=== PATIENT | female | born 1965 | race Caucasian/White ===

== ENCOUNTER 2021-02-04 16:01 | Emergency (ER) | payer MEDICAID, SELFPAY ==
[2021-02-04 16:03] VITALS: BP 149/99; PULSE 102; RESP 18; TEMP 36.6; O2SAT 96; BMI 39.4
--- NOTE | 2021-02-04 16:29 | CT_ITS ---
STUDY: CT ABDOMEN AND PELVIS WITH CONTRAST REASON FOR EXAM: Female, 55 years old. pain -- IV PO Contrast RADIATION DOSAGE (If Supplied By Facility): CTDIvol = ( 18.72 ) mGy, DLP = ( 1414.86 ) mGycm TECHNIQUE: Transaxial images were obtained from the dome of the diaphragm to the symphysis pubis without oral contrast. Oral and amp; IV Gastrografin and amp; 100mL Isovue-370 was administered. Sagittal and coronal images were reconstructed. Individualized dose optimization techniques were used for this CT. COMPARISON: 09/25/2011 FINDINGS: Diffuse interstitial thickening in the lower lobes.. The visualized portions of the heart are within normal limits. Liver is prominent and fatty infiltrated without mass or bile duct dilatation Normal gallbladder and extrahepatic biliary system. Normal spleen. Normal pancreas. Normal bilateral adrenal glands. Normal right kidney. Normal left kidney. Normal visualized stomach. Mildly distended proximal loops of small bowel consistent with focal ileus. No evidence for small bowel obstruction Normal colon. The appendix is visualized and appears normal. Mild atherosclerotic changes of the aorta without evidence for aneurysm.. Normal inferior vena cava. Normal retroperitoneum. Normal urinary bladder. Normal abdominal wall. Lumbar spine demonstrates mild spondylosis. CT/Abdomen/Pelvis WITH Contrast IMPRESSION: Mild hepatomegaly and fatty infiltrated liver. Mild nonspecific ileus within the upper abdomen. No evidence for small bowel obstruction Electronically Signed: Miguel Thomas MD at 19:18 EDT , Service support ,
--- NOTE | 2021-02-04 16:30 | ED.VIS.GEN ---
History of Present Illness Chief Complaint: Back Detail of Chief Complaint: Back and abdominal pain Informant: Patient Onset: Month(s) - 1-1/2 to 2 months Context: Gradual Onset Timing: Waxes and wanes Current Severity: Moderate Maximum Severity: Moderate Narrative: Patient presents with back pain that wraps around into her abdomen. Patient states pain initially started in the lower thoracic midline region. It progressed around to the lower abdomen. She was seen by her PCP who wanted her to come for some blood work but she has not yet done that. Patient states she was seen at [facility] where she had a noncontrast CT and lab work. She states she was told they could not find anything. Patient states is been taking ibuprofen for pain. She denies fever or chills. No vomiting or diarrhea. She states if anything she is slightly constipated. She states she did have a colonoscopy approximately year and a half ago that was normal. - Past Medical History (1) Diabetes Status: Chronic (2) Diabetic neuropathy Status: Chronic (3) GERD (gastroesophageal reflux disease) Status: Chronic Past Medical History - Allergies and Home Meds Allergies/Adverse Reactions: Allergies No Known Allergies Allergy (Verified 02/04/21 16:05) Primary Care Physician: Larry Romo DO [Primary Care Provider] - Surgical History: no surgical history Lives: Spouse/ Significant Other Smoking Status: Current every day smoker Review of Systems General: Denies: Chills, Fever Eyes: Denies: Visual changes - bilaterally ENT: Denies: Bilateral ear pain Cardiovascular: Denies: Chest pain Respiratory: Denies: Dyspnea, Cough Gastrointestinal: Reports: Abdominal pain. Denies: Nausea, Vomiting, Diarrhea Genitourinary: Denies: Dysuria Musculoskeletal: Reports: Back pain. Denies: Swelling, Extremity Pain Skin: Denies: Rash Neurological: Denies: Headache Hematologic: Denies: Easy bruising, Easy bleeding Allergy: Denies: Uticaria Physical Exam Vital Signs/Narrative: Vital Signs Temp Pulse Resp BP Pulse Ox 02/04/21 16:03 97.8 F 102 H 18 149/99 H 96 Inital Vital Signs reviewed: Yes General: Well nourished, Well developed Head: Normocephalic Neck: Supple Cardiovascular: Regular rate, Regular rhythm Respiratory: No distress, CTA bilaterally Abdomen: Soft, Tender - Mild lower abdominal tenderness to palpation., Hypoactive bowel sounds. Negative for: Guarding, Rebound tenderness Back: - - Mild tenderness location in the lower thoracic/upper lumbar midline region. No overlying skin changes. No focal point tenderness. Skin: Normal color Neurological: Alert, Oriented x3, Normal Strength, Normal Sensation Psychological: Normal affect Diagnostic/Tx/Re-eval Impressions Abdomen/Pelvis CT 02/04/21 16:29 IMPRESSION: Mild hepatomegaly and fatty infiltrated liver. Mild nonspecific ileus within the upper abdomen. No evidence for small bowel obstruction Electronically Signed: Miguel Thomas MD at 19:18 EDT , Service support , 02/04/21 16:29 Abdomen/Pelvis WITH Contrast [CT] Stat Laboratory Results 02/04/21 02/04/21 02/04/21 17:00 17:00 17:00 WBC 12.1 H RBC 5.91 H Hgb 16.1 H Hct 49.0 H MCV 82.9 MCH 27.2 MCHC 32.9 RDW Std Deviation 45.8 H RDW Coeff of Azra 15.3 H Plt Count 274 MPV 11.5 Immature Gran % (Auto) 0.500 Neut % (Auto) 64.6 Lymph % (Auto) 26.0 [place] % (Auto) 5.7 Eos % (Auto) 2.3 Baso % (Auto) 0.9 Absolute Neuts (auto) 7.8 H Absolute Lymphs (auto) 3.13 Nucleated RBC % 0 Sodium 133 L Potassium 4.2 Chloride 100 Carbon Dioxide 27.0 Anion Gap 6 BUN 12 Creatinine 0.93 Estim Creat Clear Calc 72.17 Est GFR (MDRD) Af Amer 80 Est GFR (MDRD) Non-Af 66 BUN/Creatinine Ratio 13.0 Glucose 448 H Calcium 9.6 Total Bilirubin 0.30 Direct Bilirubin 0.10 AST 14 L ALT 28 Alkaline Phosphatase 145 H Total Protein 7.8 Albumin 3.5 Globulin 4.3 H Lipase 128 Urine Color Straw Urine Clarity Sl. Cloudy Urine pH 6.0 Ur Specific [place] 1.015 Urine Protein 15 H Urine Glucose (UA) 1000 H Urine Ketones Negative Urine Occult Blood Negative Urine Nitrite Negative Urine Bilirubin Negative Urine Urobilinogen Normal Ur Leukocyte Esterase 25 H Urine RBC 0 SEEN Urine WBC 0-5 SEEN Ur Squamous Epith Cells 0-5 SEEN Urine Bacteria 0 SEEN Urine Mucus 0 SEEN - Medical Decision Making Patient was given morphine, Zofran, IV fluids. Blood work reveals hemoconcentration. Blood sugar is elevated at 448. She does have sugar noted in her urine but no sign of acute infection. CT scan with p.o. and IV contrast is obtained. There may be mild ileus in the upper small bowel. No sign of bowel obstruction. At this time patient will be written for analgesics at home. I did recommend close follow with her PCP. She may have radicular pain wrapping around her abdomen from her back and I did recommend possible MRI of her spine for further evaluation. She will talk to her PCP about this. ED Disposition - Plan for ED Patient: Disposition: Home or Assisted Living Diagnosis: Back pain, Abdominal pain Instructions: ED Abdominal Pain Unkn Cause Fem, ED Back Pain (Acute or Chronic) Prescriptions: Hydrocodone Bitart/Apap 5-325 [[place] 5MG-325MG] 1 tablet PO Q6H PRN PRN 3 Days #10 tablet PRN Reason: Pain Transmission Status: Sent to [id number] Referrals: Larry Romo DO [Primary Care Provider] - As soon as possible
[2021-02-04] MEDS: 0.9% Normal Saline 1,000 ML 150 ML IV (17:02)
[2021-02-04] MEDS: Morphine 4 MG/ML Syringe IV (17:05)
[2021-02-04] MEDS: Ondansetron 4 MG/2 ML Vial IV (17:06)
[2021-02-04 17:08] LABS: Bacteria 0 SEEN /hpf (None Seen); Mucous, Urine 0 SEEN /hpf (<or=2+); Red Blood Cells-Urine 0 SEEN /hpf (0-5)
[2021-02-04 17:13] LABS: Absolute Lymphocyte Count 3.13 X10^3/uL (0.83-4.51); Absolute Neutrophil Count 7.8 X10^3/uL (2.0-7.7); Basophil# 0.11 X10^3/uL; Basophil% 0.9 % (0-1); Eosinophil# 0.28 X10^3/uL; Eosinophils% 2.3 % (0-5); Hemoglobin 16.1 g/dL (12.0-15.0); Lymphocyte # 3.13 X10^3/ul (4.0); Mean Corp Hgb Conc 32.9 g/dL (32-36); Mean Corpuscular Hgb 27.2 pg (27.0-32.0); Mean Corpuscular Volume 82.9 fL (81-99); Mean Platelet Vol. 11.5 fl (6.2-12.0); Monocyte# 0.69 X10^3/uL; Monocyte% 5.7 % (0-10); NRBC Flagged by Analyzer 0 % (0-5); Neutrophil # 7.78 X10^3/uL (2.7-7.7); Neutrophil % 64.6 % (47-70); Platelet Count 274 K/mm3 (150-450); RBC Distribution Width CV 15.3 % (11.6-14.6); RBC Distribution Width SD 45.8 fl (35.1-43.9); Red Blood Count 5.91 M/mm3 (4.2-5.4); White Blood Count 12.1 K/mm3 (4.4-11.0)
[2021-02-04 17:21] LABS: Color, Urine Straw (Yellow); Glucose, Dipstick 1000 mg/dl (Normal); Ketone-Dipstick Negative (Negative); Leukocyte Esterase-Dipstick 25 /ul (Negative); Nitrite-Dipstick Negative (Negative); Occult Blood-Urine Negative /ul (Negative); Protein-Dipstick 15 mg/dl (Negative); Specific Gravity, Urine 1.015 (1.002-1.030); Urine Bilirubin Dipstick Negative (Negative); Urine Clarity Sl. Cloudy (Clear); Urine Urobilinogen Normal (Normal)
[2021-02-04 17:26] LABS: AST(SGOT) 14 U/L (15-37); Alanine Aminotransfer ALT/SGPT 28 U/L (13-56); Albumin, Serum 3.5 g/dL (3.2-5.0); Alkaline Phosphatase 145 U/L (45-117); Anion Gap 6 (5-15); BUN 12 mg/dL (7-18); Calcium,Total 9.6 mg/dL (8.5-10.1); Chloride 100 mmol/L (98-107); Creatinine, Serum 0.93 mg/dL (0.55-1.02); EST Glomerular Filtration Rate 66 mL/min (>60); Est Glom Filt Rate - Afr Amer 80 mL/min (>60); Estimated Creatinine Clearance 72.17 ml/min; Globulin 4.3 g/dL (2.2-4.2); Glucose 448 mg/dL (74-106); Lipase 128 U/L (73-393); Potassium 4.2 mmol/L (3.5-5.1); Protein, Total 7.8 g/dL (6.4-8.2); Sodium Level 133 mmol/L (136-145)
[2021-02-04 17:28] LABS: Squamous Epithelial Cells - UA 0-5 SEEN /hpf (5-10); White Blood Cells 0-5 SEEN /hpf (0-5)
[2021-02-04 18:34] VITALS: BP 141/70; PULSE 82; RESP 18; O2SAT 93
[2021-02-04 20:02] VITALS: BP 134/75; PULSE 87; RESP 18; O2SAT 92
[2021-02-04 20:03] VITALS: BP 134/75; PULSE 89; RESP 18; O2SAT 92
== END 2021-02-04 20:11 | disposition home or self-care (01) ==
PROVIDERS: Emergency Provider Emergency Medicine; PCP Student in an Organized Health Care Education/Training Program
DX: R10.9 Unspecified abdominal pain (principal); M54.9 Dorsalgia, unspecified; K76.0 Fatty (change of) liver, not elsewhere classified; K56.7 Ileus, unspecified; F17.200 Nicotine dependence, unspecified, uncomplicated; K21.9 Gastro-esophageal reflux disease without esophagitis; E11.40 Type 2 diabetes mellitus with diabetic neuropathy, unspecified
CPT/HCPCS: 74177; 80048; 80076; 81001; 83690; 85025; 99283; J7030; Q9967; A4216; J2405